=== PATIENT | male | born 1980 | race Caucasian/White ===

== ENCOUNTER 2020-10-24 21:20 | Emergency (ER) | payer OTHER ==
[~2020-10-24] VITALS: Ht 170.2 cm; Wt 68.0 kg
[~2020-10-24 21:20] MED LIST: IBUP600 PO; Keflex500 MG PO; Norco 5-325 Ta1 EACH PO; RANI150 PO
[2020-10-24] MEDS ORDERED: SULTRIDS PO (22:27)
== END 2020-10-24 22:40 | disposition home or self-care (01) ==
LOC: ER 21:20
DX: L03.114 Cellulitis of left upper limb (principal); L03.113 Cellulitis of right upper limb; L03.116 Cellulitis of left lower limb; F17.200 Nicotine dependence, unspecified, uncomplicated
CPT/HCPCS: 99283

== ENCOUNTER 2020-11-11 16:55 | Emergency (ER) | payer OTHER ==
[~2020-11-11] VITALS: Ht 170.2 cm; Wt 65.8 kg
[~2020-11-11 16:55] MED LIST changes: +SULTRIDS PO
[2020-11-11] MEDS ORDERED: Bactrim Ds Tab1 EACH PO (17:00)
== END 2020-11-11 17:12 | disposition home or self-care (01) ==
LOC: ER 16:55
DX: L03.114 Cellulitis of left upper limb (principal); L03.113 Cellulitis of right upper limb; F15.10 Other stimulant abuse, uncomplicated; F17.200 Nicotine dependence, unspecified, uncomplicated
CPT/HCPCS: 99282

== ENCOUNTER 2021-08-19 06:49 | Emergency (ER) | payer OTHER ==
[~2021-08-19] VITALS: Ht 170.2 cm; Wt 68.0 kg
[~2021-08-19 06:49] MED LIST changes: +Bactrim Ds Tab1 EACH PO
[2021-08-19] MEDS ORDERED: HYDR1TAB94 PO (07:46)
[2021-08-19] MEDS ORDERED: SULTRIDS PO (07:46)
== END 2021-08-19 07:59 | disposition home or self-care (01) ==
LOC: ER 06:49
DX: L02.11 Cutaneous abscess of neck (principal); F17.210 Nicotine dependence, cigarettes, uncomplicated; Z79.899 Other long term (current) drug therapy
CPT/HCPCS: 10060; 99282-25; A9270

== ENCOUNTER 2023-07-04 10:12 | Emergency (ER) | payer OTHER ==
[~2023-07-04] VITALS: Ht 162.6 cm; Wt 65.8 kg
[~2023-07-04 10:12] MED LIST changes: +HYDR1TAB94 PO
[2023-07-04] MEDS ORDERED: NICODERM CQ1 EA17 TOP (11:07)
[2023-07-04] MEDS ORDERED: Hydroxyzine HCl50 MG PO (11:07)
[2023-07-04] MEDS ORDERED: TRAZ50 PO (11:08)
[2023-07-04] MEDS ORDERED: ONDA4ODT MM (11:08)
[2023-07-04] MEDS ORDERED: NEURONTIN300 MG PO (11:08)
[2023-07-04] MEDS ORDERED: SUBOXONE 8 MG-1 EACH SL (12:41)
[2023-07-04 13:11] VITALS: BP 148/96
== END 2023-07-04 13:11 | disposition home or self-care (01) ==
LOC: ER 10:12
DX: F11.20 Opioid dependence, uncomplicated (principal); F17.210 Nicotine dependence, cigarettes, uncomplicated; Z79.2 Long term (current) use of antibiotics; Z79.899 Other long term (current) drug therapy; Z86.14 Personal history of Methicillin resistant Staphylococcus aureus infection
CPT/HCPCS: 99281

== ENCOUNTER 2023-08-19 16:22 | Emergency (ER) | payer OTHER ==
[~2023-08-19] VITALS: Ht 170.2 cm; Wt 65.8 kg
[~2023-08-19 16:22] MED LIST changes: +Hydroxyzine HCl50 MG PO; +NEURONTIN300 MG PO; +NICODERM CQ1 EA17 TOP; +ONDA4ODT MM; +SUBOXONE 8 MG-1 EACH SL; +TRAZ50 PO
[2023-08-19 16:39] VITALS: BP 180/113
[2023-08-19 17:00] LABS: BASOPHILS ABSOLUTE AUTO 0.05 K/mm3 (0.00-0.23); BASOPHILS PERCENT AUTO 0 % (0-2); EOSINOPHILS PERCENT AUTO 0 % (0-6); Hematocrit 43.1 % (37.0-53.0); Hemoglobin 14.8 g/dL (13.5-17.5); IMMATURE GRAN ABSOLUTE AUTO 0.03 K/mm3 (0.00-0.10); IMMATURE GRAN PERCENT AUTO 0 % (0-1); LYMPHOCYTES ABSOLUTE AUTO 2.05 K/mm3 (0.84-5.20); LYMPHOCYTES PERCENT AUTO 14 % (21-46); MONOCYTES ABSOLUTE AUTO 0.47 K/mm3 (0.16-1.47); MONOCYTES PERCENT AUTO 3 % (4-13); Mean Corpuscular HGB 29.8 pg (26.0-34.0); Mean Corpuscular HGB Conc 34.3 g/dL (31.5-36.5); Mean Corpuscular Volume 87 fL (80-100); Mean Platelet Volume 9.8 fL (9.1-12.4); NEUTROPHILS ABSOLUTE AUTO 12.01 K/mm3 (1.96-9.15); NEUTROPHILS PERCENT AUTO 82 % (41-73); Platelet Count 409 K/mm3 (150-400); RDW Coefficient Variation 13.5 % (11.7-14.2); RDW Standard Deviation 42.7 fL (35.1-46.3); Red Blood Cell Count 4.96 M/mm3 (4.30-5.90); White Blood Cell Count 14.61 K/mm3 (4.00-11.30)
[2023-08-19 17:28] LABS: Albumin, Blood 4.3 g/dL (3.4-5.0); Albumin/Globulin Ratio 1.3 (0.8-1.8); Bilirubin, Total 0.4 mg/dL (0.1-1.0); Bun/Creatinine Ratio 23.3 (12.0-20.0); Calcium, Blood 9.3 mg/dL (8.5-10.1); Creatinine, Blood 0.9 mg/dL (0.60-1.20); Globulin, Blood 3.4 g/dL (2.2-4.0); Potassium, Blood 3.9 mmol/L (3.5-5.5); Total Protein, Blood 7.7 g/dL (6.4-8.2)
== END 2023-08-19 21:37 | disposition left against medical advice (07) ==
LOC: ER 16:22
PROVIDERS: Physician Assistant
DX: R10.84 Generalized abdominal pain (principal); R07.9 Chest pain, unspecified; R11.10 Vomiting, unspecified; Z53.21 Procedure and treatment not carried out due to patient leaving prior to being seen by health care provider
CPT/HCPCS: 80053; 85025; 96374; 99283-25; J2405

== ENCOUNTER → 2024-06-01 | Outpatient (CLI) | payer OTHER ==
[2024-06-01 17:29] LABS: Hematocrit 47.5 % (37.0-53.0); Hemoglobin 15.7 g/dL (13.5-17.5); Mean Corpuscular HGB 30.3 pg (26.0-34.0); Mean Corpuscular HGB Conc 33.1 g/dL (31.5-36.5); Mean Corpuscular Volume 92 fL (80-100); Mean Platelet Volume 9.8 fL (9.1-12.4); Platelet Count 357 K/mm3 (150-400); RDW Coefficient Variation 13.7 % (11.7-14.2); RDW Standard Deviation 46.8 fL (35.1-46.3); Red Blood Cell Count 5.19 M/mm3 (4.30-5.90); White Blood Cell Count 11.42 K/mm3 (4.00-11.30)
[2024-06-01 17:47] LABS: Alanine Aminotransfer (ALT/SGP 28 U/L (12-78); Albumin, Blood 4.4 g/dL (3.4-5.0); Albumin/Globulin Ratio 1.3 (0.8-1.8); Alk Phos 53 U/L (50-136); Anion Gap 9 mmol/L (3-11); Aspartate Aminotrans (AST/SGOT 16 U/L (12-37); Bilirubin, Total 0.2 mg/dL (0.1-1.0); Blood Urea Nitrogen 19 mg/dL (8-24); Bun/Creatinine Ratio 17.4 (12.0-20.0); CO2, Blood 29 mmol/L (21-32); Calcium, Blood 9.3 mg/dL (8.5-10.1); Chloride, Blood 107 mmol/L (98-108); Cholesterol 194 mg/dL (50-200); Creatinine, Blood 1.09 mg/dL (0.60-1.20); Globulin, Blood 3.3 g/dL (2.2-4.0); Glomerular Filtration Rate 86 (60-); Glucose, Blood 94 mg/dL (70-99); Potassium, Blood 4.4 mmol/L (3.5-5.5); Prostate Specific Antigen 0.529 ng/mL (0.000-4.000); Sodium, Blood 141 mmol/L (136-145); Total Protein, Blood 7.7 g/dL (6.4-8.2); Triglycerides 144 mg/dL (30-160)
[2024-06-01 17:53] LABS: BASOPHILS ABSOLUTE MAN 0.11 K/mm3 (0.00-0.23); BASOPHILS PERCENT MAN 1 % (0-2); EOSINOPHILS ABSOLUTE MAN 0.34 K/mm3 (0.00-0.68); EOSINOPHILS PERCENT MAN 3 % (0-6); LYMPHOCYTES ABSOLUTE MAN 3.76 K/mm3 (0.84-5.20); LYMPHOCYTES PERCENT MAN 33 % (21-46); MONOCYTES ABSOLUTE MAN 0.79 K/mm3 (0.16-1.47); MONOCYTES PERCENT MAN 7 % (4-13); NEUTROPHILS ABSOLUTE MAN 6.39 K/mm3 (1.96-9.15); SEG NEUTROPHILS PERCENT MAN 56 % (41-73); TOTAL CELLS COUNTED 100
[2024-06-03 16:00] LABS: APTIMA MEDIA TYPE Urine; C. TRACHOMATIS BY TMA Negative (Negative); N. GONORRHOEAE BY TMA Negative (Negative); SPECIMEN SOURCE Urine
== END ==
LOC: LAB 16:04 → LAB SHORT 16:04
PROVIDERS: Nurse Practitioner Family
DX: R39.11 Hesitancy of micturition (principal)
CPT/HCPCS: 36415; 80053; 82465; 83036; 84443; 84478; 85007; 85027; 87491; 87591; G0103